=== PATIENT | female | born 1995 | race African-American/Black ===

== ENCOUNTER 2016-10-08 15:06 | Emergency (ER) | payer BC, OTHER ==
[~2016-10-08] VITALS: Ht 160 cm; Wt 81.7 kg
[~2016-10-08 15:06] MED LIST: AMOXICILLIN 50500 MG PO; BENADRYL25 MG PO; IBUPROFEN 600600 M1 PO; IRON325 PO; NAPROSYN500 MG PO; NORCO 5-325 TA1 EACH PO; PRENATAL + DHA1 EAC1 PO; PROTONIX40 M1 PO; TRINATE TABLET1 TAB; TRINATE TABLET1 TAB PO; TYLENOL325 MG PO; ZOLOFT25 MG PO
[2016-10-08 15:08] VITALS: BP 117/72
[2016-10-08 15:55] LABS: HEMATOCRIT 37.9 % (37.0-47.0); MCH 28.1 pg (26.0-34.0); MCHC 31.6 g/dL (28.0-37.0); MCV 88.7 fL (80.0-100.0); RBC 4.28 mil/uL (4.20-5.00); RDW 14.3 % (10.5-14.5); WBC 8.2 thou/uL (4.0-11.0)
[2016-10-08 16:07] LABS: ANION GAP 9 mmol/L (7-16); BUN 9 mg/dL (7-18); CHLORIDE 105 mmol/L (98-107); CO2 26 mmol/L (21-32); CREATININE 0.8 mg/dL (0.6-1.0); GLUCOSE 83 mg/dL (74-106); POTASSIUM 4.2 mmol/L (3.5-5.1); SODIUM 140 mmol/L (136-145)
[2016-10-08 16:12] LABS: ALBUMIN 3.6 g/dL (3.4-5.0); ALKALINE PHOSPHATASE 60 U/L (46-116); DIRECT BILIRUBIN < 0.1 mg/dL (<0.1-0.3); SGOT 28 U/L (15-37); SGPT 13 U/L (30-65); TOTAL BILIRUBIN 0.3 mg/dL (<0.1-1.0); TOTAL PROTEIN 7.8 g/dL (6.4-8.2)
[2016-10-08 17:28] LABS: URINE BILIRUBIN NEGATIVE (Negative); URINE BLOOD NEGATIVE (Negative); URINE COLOR YELLOW; URINE GLUCOSE-RANDOM* NEGATIVE (Negative); URINE KETONES TRACE (Negative); URINE LEUKOCYTES-REFLEX NEGATIVE (Negative); URINE PROTEIN (DIPSTICK) NEGATIVE (Negative); URINE SPECIFIC GRAVITY 1.025 (1.003-1.035); URINE UROBILINOGEN 0.2 E.U./dl (0.2-1.0)
[2016-10-08] MEDS ORDERED: PHENERGAN 25 MG25 M1 PO (17:47)
[2016-10-08] MEDS ORDERED: IBUPROFEN 800800 M1 PO (17:47)
[2016-10-08] MEDS ORDERED: BENTYL 20 MG TA20 M1 PO (17:47)
[2016-10-09 20:06] LABS: CHLAMYDIA TRACHOMATIS-PCR Negative (Negative); NEISSERIA GONORRHEA-PCR Negative (Negative)
== END 2016-10-08 18:01 | disposition home or self-care (01) ==
LOC: ER 15:06
PROVIDERS: Physician Assistant
DX: K80.50 Calculus of bile duct without cholangitis or cholecystitis without obstruction (principal); F10.99 Alcohol use, unspecified with unspecified alcohol-induced disorder

== ENCOUNTER 2016-10-11 20:23 | Inpatient (IN) | payer BC, OTHER ==
[~2016-10-11] VITALS: Ht 160 cm; Wt 82.4 kg
--- NOTE | ~2016-10-11 | S ---
[facility] [place] [address] SURGICAL PATH RPT PROCEDURE Name: NATALIIA FUNEZ MADELINE Room #: 426-P [facility] IN M.R.#: [id number] Admission: 10/11/16 Date of : 89 Discharge: 10/13/16 Report #: [id number] Path Case #: [id number] PATHOLOGY REPORT COLLECTION DATE: 10/12/2016 RECEIVED DATE: 10/14/2016 SUBMITTING PHYS: Dr. Boom Fraser, OTHER PHYS: Dr. Martin Covarrubias SPECIMEN(S) RECEIVED: A.Gallbladder * * * * * * * * * * * * FINAL DIAGNOSIS: "Gallbladder", cholecystectomy: - Mild acute on chronic cholecystitis. - Cholelithiasis. (CLW:yumiko; 10/15/2016) PATHOLOGIST: Yumiko Sebastian M.D. REPORT ELECTRONICALLY SIGNED BY: Yumiko Sebastian M.D. DATE/TIME: 10/15/2016 15:13 * * * * * * * * * * * * GROSS PATHOLOGY: Received in formalin labeled "Nataliia Funez, gallbladder," is a previously opened cm, 5.0 x 3.2 x 0.8 gallbladder with brown-green, bile-stained serosal surfaces. Opening the gallbladder reveals brown-green, velvety, bile-stained mucosa and an average wall thickness of 0.2 cm. Calculi are present ranging from 0.1-0.2 cm. No masses are noted grossly. Percolator Operator sections from the body and fundus are submitted along with the proximal margin in cassette A1. (JWP; 10/14/2016) CLINICAL HISTORY: Acute cholecystitis INITIAL CPT CODE(S): A; 20990 Professional services performed by [facility] at [facility] [address] , [place] [address] [facility] [address] [place] [address] SURGICAL PATH RPT PROCEDURE Name: ARMINNATALIIA Room #: 426-P DIS IN M.R.#: [id number] Admission: 10/11/16 Date of : 89 Discharge: 10/13/16 Report #: [id number] Path Case #: [id number] Technical services performed by [facility] at [address] [place] [address], [place] [address]. [place] [address] PHONE: [phone] DIRECTOR: Floyd Hernandez M.D. * * * END OF REPORT * * *
[2016-10-11 00:50] VITALS: BP 112/76
[~2016-10-11 20:23] MED LIST changes: +BENTYL 20 MG TA20 M1 PO; +IBUPROFEN 800800 M1 PO; +PHENERGAN 25 MG25 M1 PO
[2016-10-11 20:29] VITALS: BP 126/78
[2016-10-11 20:46] LABS: URINE BILIRUBIN NEGATIVE (Negative); URINE BLOOD NEGATIVE (Negative); URINE COLOR YELLOW; URINE GLUCOSE-RANDOM* NEGATIVE (Negative); URINE KETONES NEGATIVE (Negative); URINE LEUKOCYTES-REFLEX NEGATIVE (Negative); URINE PROTEIN (DIPSTICK) NEGATIVE (Negative); URINE SPECIFIC GRAVITY 1.025 (1.003-1.035); URINE UROBILINOGEN 0.2 E.U./dl (0.2-1.0)
[2016-10-11 21:13] LABS: ABSOLUTE NEUTROPHILS 7.6 thou/uL (1.4-8.2); BASOPHILS 0.7 % (0.0-2.0); EOSINOPHILS 2.3 % (0.0-3.0); HEMATOCRIT 39.3 % (37.0-47.0); LYMPHOCYTES 21.7 % (24.0-44.0); MCH 28.6 pg (26.0-34.0); MCHC 33.1 g/dL (28.0-37.0); MCV 86.6 fL (80.0-100.0); MONOCYTES 8.3 % (1.0-8.0); PLATELET COUNT 350 thou/uL (150-400); RBC 4.54 mil/uL (4.20-5.00); WBC 11.3 thou/uL (4.0-11.0)
[2016-10-11 21:16] LABS: MANUAL DIFF NO
[2016-10-11 21:23] LABS: ANION GAP 7 mmol/L (7-16); BUN 7 mg/dL (7-18); CALCIUM 8.9 mg/dL (8.5-10.1); CHLORIDE 104 mmol/L (98-107); CO2 26 mmol/L (21-32); CREATININE 0.9 mg/dL (0.6-1.0); GLUCOSE 91 mg/dL (74-106); POTASSIUM 4.1 mmol/L (3.5-5.1); SODIUM 137 mmol/L (136-145)
[2016-10-11 21:29] LABS: ALBUMIN 3.6 g/dL (3.4-5.0); ALKALINE PHOSPHATASE 59 U/L (46-116); DIRECT BILIRUBIN < 0.1 mg/dL (<0.1-0.3); SGOT 27 U/L (15-37); SGPT 20 U/L (30-65); TOTAL BILIRUBIN 0.3 mg/dL (<0.1-1.0); TOTAL PROTEIN 8.2 g/dL (6.4-8.2)
[2016-10-12] VITALS (11 sets, daily range): BP systolic 92–118; BP diastolic 44–68
[2016-10-12 06:01] LABS: HEMATOCRIT 37.4 % (37.0-47.0); HEMOGLOBIN 12.2 gm/dL (12.0-15.0); MCH 28.5 pg (26.0-34.0); MCHC 32.7 g/dL (28.0-37.0); MCV 87.2 fL (80.0-100.0); RBC 4.29 mil/uL (4.20-5.00); RDW 14.2 % (10.5-14.5); WBC 9.1 thou/uL (4.0-11.0)
[2016-10-12 06:13] LABS: CALCIUM 8.5 mg/dL (8.5-10.1); CREATININE 0.8 mg/dL (0.6-1.0); POTASSIUM 3.7 mmol/L (3.5-5.1)
[2016-10-12 06:15] LABS: INR 1.1; PROTIME 11.3 Seconds (9.3-11.4)
[2016-10-12] MEDS ORDERED: HYDROCODON-ACE1 EAC7 PO (11:43)
[2016-10-13 03:21] VITALS: BP 102/58
[2016-10-13 08:49] VITALS: BP 100/62
== END 2016-10-13 12:21 | disposition home or self-care (01) | DRG 418 ==
LOC: ER 20:23 → 4E 23:59 → EROBS 23:59 → 4E 10-12 00:35
PROVIDERS: Emergency Medicine; Nurse Practitioner Family
PROC: 0FT44ZZ Resection of Gallbladder, Percutaneous Endoscopic Approach (ICD-10-PCS; principal; 2016-10-12)
DX: K80.00 Calculus of gallbladder with acute cholecystitis without obstruction (principal); K90.49 Malabsorption due to intolerance, not elsewhere classified; K83.9 Disease of biliary tract, unspecified; D72.829 Elevated white blood cell count, unspecified; Z82.49 Family history of ischemic heart disease and other diseases of the circulatory system; Z84.1 Family history of disorders of kidney and ureter; Z79.899 Other long term (current) drug therapy
CPT/HCPCS: 10084; 50101; 50249; 50411; 50555; 50558; 50962; 51489; 51975; 52265; 53307; 53310; 54022; 54118; 55245; 56462; 56525; 56526; 62110; 62900; 70005